=== PATIENT | male | born 1985 | race African-American/Black ===

== ENCOUNTER 2019-04-03 08:43 | Emergency (ER) | payer OTHER ==
[~2019-04-03] VITALS: Ht 182.9 cm; Wt 95.5 kg
[2019-04-03] MEDS ORDERED: INHALER IH (08:46)
[2019-04-03] MEDS ORDERED: IPRATROPIUM BROMIDE 0.5 MG/2.5 ML NEB SOLUTION NEB ONE (09:30)
[2019-04-03] MEDS ORDERED: ALBUTEROL SULFATE 2.5 MG/0.5 ML NEB SOLUTION NEB ONE (09:30)
[2019-04-03] MEDS ORDERED: PredniSONE 20 MG TABLET PO ONE (09:30)
[2019-04-03 09:49] VITALS: BP 147/93
== END 2019-04-03 10:58 | disposition home or self-care (01) ==
LOC: EMS 08:43
DX: J45.901 Unspecified asthma with (acute) exacerbation (principal); F32.9 Major depressive disorder, single episode, unspecified; Z88.1 Allergy status to other antibiotic agents
CPT/HCPCS: 71045; 94640; 99283; J7512; 94060